=== PATIENT | male | born 1960 | race Caucasian/White ===

== ENCOUNTER 2021-04-18 12:12 | Inpatient (IN) | payer MEDICARE, MEDICAID ==
[~2021-04-18] VITALS: Ht 172.7 cm; Wt 95.4 kg
[2021-04-18] MEDS ORDERED: MECLIZINE 25MG TABLET PO ONE (13:00)
[2021-04-18] MEDS ORDERED: LABETALOL 5MG/ML SYR 20 MG/4 ML SYRINGE IV ONE (13:00)
[2021-04-18 13:05] LABS: BASOPHILS % 1.2 % (0.0-2.0); EOSINOPHILS % 2.7 % (0.0-5.0); HEMATOCRIT. 40.6 % (42.0-52.0); HEMOGLOBIN. 14.2 g/dL (14.0-18.0); LYMPHOCYTES % 15.6 % (20.0-50.0); MEAN CORPUSCULAR VOLUME 82.9 fL (80.0-94.0); MEAN PLATELET VOLUME 9.4 fl (7.4-10.4); MONOCYTES % 5.3 % (2.0-8.0); NEUTROPHILS % 75.2 % (40.0-76.0); PLATELET 217 x1000/uL (130-400); RED BLOOD CELL COUNT 4.89 mill/uL (4.7-6.1); RED CELL DISTRIBUTION WIDTH 12.2 % (11.6-14.6)
[2021-04-18 13:09] LABS: CHLORIDE 100 mEq/L (98-107)
[2021-04-18] MEDS ORDERED: FUROSEMIDE 20MG/2ML VIAL IVP ONE (14:00)
[2021-04-18] MEDS ORDERED: HYDRALAZINE 20MG/ML VIAL IV NR (15:00)
[2021-04-18] MEDS ORDERED: FAMOTIDINE 20MG/2ML VIAL IV SCH (15:45)
[2021-04-18] MEDS: ASPIRIN 81MG TABLET PO SCH (15:58)
[2021-04-18 18:05] VITALS: BP 160/90
[2021-04-18] MEDS ORDERED: *PATIENT'S OWN MEDICATION STORAGE XX SCH (19:00)
[2021-04-18] MEDS ORDERED: FURO-151 PO (19:10)
[2021-04-18] MEDS ORDERED: POTA-79 PO (19:14)
[2021-04-18 20:00] VITALS: BP 169/94
[2021-04-18] MEDS: ENOXAPARIN 30MG/0.3ML SYR SUBCUT SCH (20:29)
[2021-04-18] MEDS: FAMOTIDINE 20MG TABLET PO SCH (20:29)
[2021-04-18] MEDS: HYDRALAZINE 20MG/ML VIAL IV PRN (20:29)
[2021-04-19] VITALS (7 sets, daily range): BP systolic 140–181; BP diastolic 79–100
[2021-04-19 07:38] LABS: BASOPHILS % 1.2 % (0.0-2.0); EOSINOPHILS % 2.7 % (0.0-5.0); HEMATOCRIT. 39.1 % (42.0-52.0); HEMOGLOBIN. 13.9 g/dL (14.0-18.0); LYMPHOCYTES % 24.5 % (20.0-50.0); MEAN CORPUSCULAR HEMOGLOBIN 29.1 pg (28.0-32.0); MEAN CORPUSCULAR VOLUME 81.9 fL (80.0-94.0); MEAN PLATELET VOLUME 9.8 fl (7.4-10.4); MONOCYTES % 7.9 % (2.0-8.0); NEUTROPHILS % 63.7 % (40.0-76.0); PLATELET 213 x1000/uL (130-400); RED BLOOD CELL COUNT 4.78 mill/uL (4.7-6.1); RED CELL DISTRIBUTION WIDTH 12.7 % (11.6-14.6)
[2021-04-19] MEDS: ASPIRIN 81MG TABLET PO SCH (09:25)
[2021-04-19] MEDS: HYDRALAZINE 20MG/ML VIAL IV PRN (09:26)
[2021-04-19] MEDS ORDERED: AMLODIPINE 5MG TABLET PO NR (11:00)
[2021-04-19 14:10] LABS: INR 1.1; PROTHROMBIN TIME 11.7 sec (9.6-11.0)
[2021-04-19] MEDS ORDERED: ASPI-1497 MT (14:23)
[2021-04-19] MEDS ORDERED: AMLO10TA4 MT (14:23)
[2021-04-19 14:24] LABS: CREATINE KINASE MB FRACTION 3.9 ng/mL (0.5-3.6)
[2021-04-19] MEDS: FAMOTIDINE 20MG TABLET PO SCH (20:41)
[2021-04-19] MEDS: AMLODIPINE 5MG TABLET PO SCH (20:41)
[2021-04-19] MEDS: ATORVASTATIN CALCIUM 20MG TABLET PO SCH (20:41)
[2021-04-19] MEDS: ENOXAPARIN 30MG/0.3ML SYR SUBCUT SCH (20:42)
[2021-04-20] MEDS: HYDRALAZINE 20MG/ML VIAL IV PRN (00:07)
[2021-04-20 01:21] LABS: CLARITY URINE CLEAR (CLEAR); COLOR URINE YELLOW (YELLOW); KETONES URINE NEGATIVE (NEGATIVE); LEUKOCYTE ESTERASE URINE NEGATIVE (NEGATIVE); NITRITE URINE NEGATIVE (NEGATIVE); OCCULT BLOOD URINE 1+ (NEGATIVE); PH URINE 6.5 (4.5-8.0); PROTEIN URINE 4+ (NEGATIVE); SPECIFIC GRAVITY URINE 1.024 (1.005-1.030)
[2021-04-20 01:36] LABS: *COCAINE SCREEN URINE NEGATIVE (NEGATIVE); PHENCYCLIDINE URINE SCREEN NEGATIVE (NEGATIVE)
[2021-04-20 01:37] LABS: *AMPHETAMINES SCREEN URINE NEGATIVE (NEGATIVE); *BARBITURATES SCREEN URINE NEGATIVE (NEGATIVE); *BENZODIAZEPINES SCREEN URINE NEGATIVE (NEGATIVE); CANNABINOID URINE SCREEN NEGATIVE (NEGATIVE); OPIATES URINE SCREEN NEGATIVE (NEGATIVE)
[2021-04-20 01:38] LABS: METHADONE URINE SCREEN NEGATIVE (NEGATIVE)
[2021-04-20 03:41] VITALS: BP 146/95
[2021-04-20] MEDS ORDERED: ONDANSETRON HCL 4MG/2ML INJ IV PRN (04:45)
[2021-04-20] MEDS: DEXT 5%/0.45% NACL KCL 20MEQ/L 1,000 ML IV SCH ×2 (05:19→15:17)
[2021-04-20 08:00] VITALS: BP 117/73
[2021-04-20 08:49] LABS: BASOPHILS % 0.8 % (0.0-2.0); EOSINOPHILS % 3.2 % (0.0-5.0); HEMOGLOBIN. 12.2 g/dL (14.0-18.0); LYMPHOCYTES % 15.8 % (20.0-50.0); MEAN CORPUSCULAR HEMOGLOBIN 28.7 pg (28.0-32.0); MEAN CORPUSCULAR VOLUME 82.5 fL (80.0-94.0); MEAN PLATELET VOLUME 9.4 fl (7.4-10.4); MONOCYTES % 9.5 % (2.0-8.0); NEUTROPHILS % 70.7 % (40.0-76.0); PLATELET 191 x1000/uL (130-400); RED BLOOD CELL COUNT 4.24 mill/uL (4.7-6.1); RED CELL DISTRIBUTION WIDTH 12.7 % (11.6-14.6)
[2021-04-20] MEDS: PANTOPRAZOLE SODIUM 40 MG/VIAL IV SCH (09:13)
[2021-04-20] MEDS: AMLODIPINE 5MG TABLET PO SCH ×2 (09:14→21:05)
[2021-04-20] MEDS: ASPIRIN 81MG TABLET PO SCH (09:14)
[2021-04-20 12:00] VITALS: BP_SYST 118; BP_SYST 146; BP_SYST 154; BP_DIAS 77; BP_DIAS 86; BP_DIAS 87
[2021-04-20] MEDS: ENOXAPARIN 40MG/0.4ML SYR SUBCUT SCH (15:18)
[2021-04-20] MEDS ORDERED: MORPHINE SULFATE 2 MG/ML CPJ (NOT FOR IM USE) IV PRN (15:45)
[2021-04-20 16:00] VITALS: BP 142/84
[2021-04-20] MEDS ORDERED: NALOXONE HCL 0.4MG/ML VIAL IV PRN (16:00)
[2021-04-20 19:57] VITALS: BP 139/77
[2021-04-20] MEDS: ATORVASTATIN CALCIUM 20MG TABLET PO SCH (21:04)
[2021-04-20] MEDS: FAMOTIDINE 20MG TABLET PO SCH (21:05)
[2021-04-21] VITALS: BP 149/80
[2021-04-21] MEDS: DEXT 5%/0.45% NACL KCL 20MEQ/L 1,000 ML IV SCH ×2 (03:15→16:51)
[2021-04-21 04:00] VITALS: BP 155/90
[2021-04-21 07:31] LABS: BASOPHILS % 1.1 % (0.0-2.0); HEMATOCRIT. 31.9 % (42.0-52.0); HEMOGLOBIN. 11.1 g/dL (14.0-18.0); LYMPHOCYTES % 21.6 % (20.0-50.0); MEAN CORPUSCULAR HEMOGLOBIN 28.8 pg (28.0-32.0); MEAN PLATELET VOLUME 9.3 fl (7.4-10.4); MONOCYTES % 9.6 % (2.0-8.0); NEUTROPHILS % 62.7 % (40.0-76.0); PLATELET 191 x1000/uL (130-400); RED BLOOD CELL COUNT 3.84 mill/uL (4.7-6.1); RED CELL DISTRIBUTION WIDTH 12.3 % (11.6-14.6)
[2021-04-21 08:00] VITALS: BP 132/73
[2021-04-21] MEDS: ASPIRIN 81MG TABLET PO SCH (09:29)
[2021-04-21] MEDS: PANTOPRAZOLE SODIUM 40 MG/VIAL IV SCH (09:29)
[2021-04-21] MEDS: AMLODIPINE 5MG TABLET PO SCH ×2 (09:30→21:17)
[2021-04-21] MEDS: HYDRALAZINE 20MG/ML VIAL IV PRN (11:49)
[2021-04-21 12:00] VITALS: BP_SYST 164; BP_SYST 167; BP_SYST 169; BP_DIAS 8; BP_DIAS 89; BP_DIAS 98
[2021-04-21 16:00] VITALS: BP 139/79
[2021-04-21] MEDS: ENOXAPARIN 40MG/0.4ML SYR SUBCUT SCH (16:50)
[2021-04-21 20:00] VITALS: BP_SYST 142; BP_SYST 152; BP_SYST 154; BP_DIAS 77; BP_DIAS 80; BP_DIAS 89
[2021-04-21] MEDS: FAMOTIDINE 20MG TABLET PO SCH (21:17)
[2021-04-21] MEDS: ATORVASTATIN CALCIUM 20MG TABLET PO SCH (21:17)
[2021-04-21] MEDS: ACETAMINOPHEN 325MG TABLET PO PRN (21:40)
[2021-04-22] VITALS: BP 147/84
[2021-04-22 04:00] VITALS: BP 132/76
[2021-04-22 08:00] VITALS: BP 155/79
[2021-04-22] MEDS: ACETAMINOPHEN 325MG TABLET PO PRN (08:32)
[2021-04-22] MEDS: ASPIRIN 81MG TABLET PO SCH (08:32)
[2021-04-22] MEDS: AMLODIPINE 5MG TABLET PO SCH (08:33)
[2021-04-22 12:00] VITALS: BP 146/73
[2021-04-22] MEDS: DEXT 5%/0.45% NACL KCL 20MEQ/L 1,000 ML IV SCH (13:21)
[2021-04-22 16:00] VITALS: BP 157/78
[2021-04-22 16:13] VITALS: BP 157/78
[2021-04-22] MEDS: ENOXAPARIN 40MG/0.4ML SYR SUBCUT SCH (18:09)
[2021-04-22] MEDS: HYDRALAZINE 20MG/ML VIAL IV PRN (18:25)
== END 2021-04-22 19:00 | DRG 291 ==
LOC: ER 12:40 → EDBEDREQ 12:54 → SUPCPDRO 14:31 → 6WST 16:24 → EDBEDREQ 16:34 → ENRESERV 16:56
PROVIDERS: ADMIT Internal Medicine; ATTEND Internal Medicine
DX: I13.0 Hypertensive heart and chronic kidney disease with heart failure and stage 1 through stage 4 chronic kidney disease, or unspecified chronic kidney disease (principal); I50.43 Acute on chronic combined systolic (congestive) and diastolic (congestive) heart failure; I16.0 Hypertensive urgency; E78.5 Hyperlipidemia, unspecified; D49.519 Neoplasm of unspecified behavior of unspecified kidney; N20.0 Calculus of kidney; N40.0 Benign prostatic hyperplasia without lower urinary tract symptoms; N18.9 Chronic kidney disease, unspecified; N28.89 Other specified disorders of kidney and ureter; R55 Syncope and collapse; G90.8 Other disorders of autonomic nervous system; Z79.899 Other long term (current) drug therapy; Z20.822 Contact with and (suspected) exposure to COVID-19; G90.9 Disorder of the autonomic nervous system, unspecified
CPT/HCPCS: 36415; 71045; 74176; 76770; 80048; 80053; 80061; 80305; 81003; 82550; 82553; 83880; 84153; 84484; 85025; 87426; 93005; 93306; 93970; 97162; 99291; C9113; J0360; J1650; J2270; J2405; J3490; J8597; G0103